=== PATIENT | female | born 1975 | race Caucasian/White ===

== ENCOUNTER 2017-03-29 05:55 | Emergency (ER) | payer MEDICARE, MEDICAID ==
[~2017-03-29] VITALS: Ht 170.2 cm; Wt 127.0 kg
[2017-03-29 07:38] LABS: BASOPHILS % 0.6 % (0.0-2.0); EOSINOPHILS % 4.2 % (0.0-5.0); HEMATOCRIT. 42.9 % (36.0-48.0); HEMOGLOBIN. 14.2 g/dL (12.0-16.0); LYMPHOCYTES % 14.4 % (20.0-50.0); MEAN CORPUSCULAR HEMOGLOBIN 31.1 pg (28.0-32.0); MEAN CORPUSCULAR VOLUME 94.3 fL (81.0-99.0); MEAN PLATELET VOLUME 9.4 fl (7.4-10.4); MONOCYTES % 4.8 % (2.0-8.0); PLATELET 168 x1000/uL (130-400); RED BLOOD CELL COUNT 4.55 mill/uL (4.2-5.4); RED CELL DISTRIBUTION WIDTH 18.1 % (11.6-14.6)
[2017-03-29 07:46] LABS: CARBON DIOXIDE 28 mEq/L (21-32); CHLORIDE 94 mEq/L (98-107)
[2017-03-29 08:22] VITALS: BP 133/75
== END 2017-03-29 08:23 | disposition home or self-care (01) ==
LOC: ER 07:37
DX: T82.318A Breakdown (mechanical) of other vascular grafts, initial encounter (principal); N18.6 End stage renal disease; I12.0 Hypertensive chronic kidney disease with stage 5 chronic kidney disease or end stage renal disease; F17.200 Nicotine dependence, unspecified, uncomplicated; Z99.2 Dependence on renal dialysis; Z91.041 Radiographic dye allergy status; Y92.89 Other specified places as the place of occurrence of the external cause
CPT/HCPCS: 36415; 80053; 85025; 85610; 99284

== ENCOUNTER 2017-06-03 15:36 | Inpatient (IN) | payer BC, MEDICAID, MEDICARE, OTHER ==
[~2017-06-03] VITALS: Ht 153.7 cm; Wt 124.3 kg
[2017-06-03] MEDS ORDERED: KETOROLAC 60MG/2ML VIAL IM ONE (18:15)
[2017-06-03 18:53] LABS: HEMATOCRIT. 37.2 % (36.0-48.0); HEMOGLOBIN. 12.3 g/dL (12.0-16.0); MEAN CORPUSCULAR HEMOGLOBIN 30.6 pg (28.0-32.0); MEAN CORPUSCULAR VOLUME 92.7 fL (81.0-99.0); MEAN PLATELET VOLUME 9.2 fl (7.4-10.4); PLATELET 134 x1000/uL (130-400); RED BLOOD CELL COUNT 4.01 mill/uL (4.2-5.4); RED CELL DISTRIBUTION WIDTH 16.6 % (11.6-14.6)
[2017-06-03 18:56] LABS: CHLORIDE 87 mEq/L (98-107)
[2017-06-03 18:58] LABS: INR 1.2; PROTHROMBIN TIME 12.1 sec (9.4-11.6)
[2017-06-03 18:59] LABS: CARBON DIOXIDE 23 mEq/L (21-32)
[2017-06-03 19:06] LABS: TROPONIN I < 0.02 ng/mL (0.00-0.04)
[2017-06-03 19:22] LABS: PLATELET ESTIMATE NORMAL
[2017-06-03] MEDS ORDERED: PIPERACILLIN/TAZ 2.25G PREMIX 50 ML IV ONE (20:30)
[2017-06-03] MEDS ORDERED: MORPHINE SULFATE 4 MG/ML CPJ (NOT FOR IM USE) IV ONE (20:30)
[2017-06-03] MEDS ORDERED: VANCOMYCIN 750 MG PREMIX 150 ML IV ONE (20:30)
[2017-06-03] MEDS ORDERED: MORPHINE SULFATE 2 MG/ML CPJ (NOT FOR IM USE) IV PRN (20:45)
[2017-06-03] MEDS ORDERED: ONDANSETRON HCL 4MG/2ML VIAL IV PRN (20:45)
[2017-06-03] MEDS ORDERED: IPRATROPIUM/ALBUTEROL 0.5-3(2.5)MG/3ML NEB INH PRN (20:45)
[2017-06-03] MEDS ORDERED: MORPHINE SULFATE 2 MG/ML CPJ (NOT FOR IM USE) IV NR (20:45)
[2017-06-03] MEDS ORDERED: ZOLPIDEM TARTRATE 5MG TABLET PO PRN (21:00)
[2017-06-03] MEDS: ACETAMINOPHEN 325MG TABLET PO PRN (22:18)
[2017-06-03 23:09] VITALS: BP 121/65
[2017-06-04] MEDS: ACETAMINOPHEN 325MG TABLET PO PRN (00:42)
[2017-06-04] MEDS ORDERED: ROPI0.5T MT (01:42)
[2017-06-04] MEDS ORDERED: NEPVIT PO (01:42)
[2017-06-04] MEDS ORDERED: BENZ200C52 PO (01:42)
[2017-06-04] MEDS ORDERED: ALPR0.5T PO (01:42)
[2017-06-04] MEDS ORDERED: OMEP40CA34 PO (01:42)
[2017-06-04] MEDS ORDERED: ASCO500C6 PO (01:42)
[2017-06-04] MEDS ORDERED: ZOLP5TAB8 PO (01:42)
[2017-06-04] MEDS ORDERED: CINA30 PO (01:42)
[2017-06-04] MEDS ORDERED: TRAZ-132 PO (01:42)
[2017-06-04] MEDS ORDERED: METO50TA5 PO (01:42)
[2017-06-04] MEDS ORDERED: MEDR10TA11 PO (01:42)
[2017-06-04] MEDS ORDERED: VANCOMYCIN 1 G PREMIX 200 ML IV NR ×2 (02:00→20:00)
[2017-06-04] MEDS: IPRATROPIUM/ALBUTEROL 0.5-3(2.5)MG/3ML NEB INH SCH ×3 (02:33→20:49)
[2017-06-04 04:00] VITALS: BP 124/70
[2017-06-04 06:28] LABS: HEMATOCRIT. 37.3 % (36.0-48.0); MEAN CORPUSCULAR HEMOGLOBIN 30.1 pg (28.0-32.0); MEAN CORPUSCULAR VOLUME 93.5 fL (81.0-99.0); MEAN PLATELET VOLUME 9.9 fl (7.4-10.4); PLATELET 110 x1000/uL (130-400); RED BLOOD CELL COUNT 3.99 mill/uL (4.2-5.4); RED CELL DISTRIBUTION WIDTH 17.1 % (11.6-14.6)
[2017-06-04] MEDS: MORPHINE SULFATE 2 MG/ML CPJ (NOT FOR IM USE) IV PRN ×2 (07:04→13:34)
[2017-06-04] MEDS ORDERED: OMEPRAZOLE 20MG CAPSULE EXTENDED RELEASE PO SCH (07:10)
[2017-06-04 07:22] LABS: PHOSPHORUS 6.5 mg/dL (2.5-4.9)
[2017-06-04 08:00] VITALS: BP 118/72
[2017-06-04] MEDS ORDERED: SODIUM POLYSTYRENE SULFONATE 15 G/60 ML BOT PO NR (08:15)
[2017-06-04] MEDS: METOPROLOL TARTRATE 50MG TABLET PO SCH ×2 (09:00→20:41)
[2017-06-04] MEDS: FOLIC ACID/VITAMIN B COMP W-C TABLET PO SCH (09:00)
[2017-06-04] MEDS ORDERED: ASCORBIC ACID 500 MG PO SCH (09:00)
[2017-06-04] MEDS: OMEPRAZOLE 20MG CAPSULE EXTENDED RELEASE PO SCH ×3 (09:00→17:43)
[2017-06-04] MEDS ORDERED: CINACALCET HCL 30MG TABLET PO SCH (09:00)
[2017-06-04] MEDS ORDERED: PIPERACILLIN/TAZ 2.25G PREMIX 50 ML IV SCH ×2 (09:00→21:00)
[2017-06-04] MEDS ORDERED: MEDICATION NOT ON FORMULARY EA (Omeprazole 40 MG) PO SCH (09:00)
[2017-06-04] MEDS: ENOXAPARIN 30MG/0.3ML SYR SUBCUT SCH (09:00)
[2017-06-04] MEDS: ALPRAZOLAM 0.5 MG TABLET PO PRN (09:04)
[2017-06-04] MEDS: ASCORBIC ACID 500 MG TABLET PO SCH ×2 (09:04→17:43)
[2017-06-04] MEDS: BENZONATATE 200MG CAPSULE PO SCH ×3 (09:17→17:44)
[2017-06-04] MEDS: TRAZODONE HCL 100MG TABLET PO SCH (09:30)
[2017-06-04] MEDS ORDERED: LIDOCAINE HCL 1% 20ML VIAL (Pyxis) INJ ONE (11:27)
[2017-06-04] MEDS ORDERED: SODIUM BICARBONATE 4% (2.4MEQ) 5ML VIAL IV ONE (11:27)
[2017-06-04 12:00] VITALS: BP 116/67
[2017-06-04 16:00] VITALS: BP 122/70
[2017-06-04] MEDS ORDERED: ZOLPIDEM TARTRATE 5MG TABLET PO SCH (17:00)
[2017-06-04] MEDS: HYDROCODONE/ACETAMINOPHEN 5/325MG TABLET PO PRN (17:45)
[2017-06-04 18:28] LABS: PLATELET ESTIMATE DECREASED
[2017-06-04 20:00] VITALS: BP 103/52
[2017-06-04] MEDS ORDERED: ROPINIROLE HCL MT SCH (21:00)
[2017-06-04] MEDS ORDERED: MEDROXYPROGESTERONE ACETATE PO SCH (21:00)
[2017-06-04] MEDS ORDERED: MEDROXYPROGESTERONE ACET 5MG TABLET PO SCH (21:00)
[2017-06-05] VITALS: BP 112/61
[2017-06-05] MEDS: IPRATROPIUM/ALBUTEROL 0.5-3(2.5)MG/3ML NEB INH SCH ×4 (01:24→20:44)
[2017-06-05 04:00] VITALS: BP 111/67
[2017-06-05] MEDS: OMEPRAZOLE 20MG CAPSULE EXTENDED RELEASE PO SCH ×3 (06:36→17:52)
[2017-06-05 06:45] LABS: HEMATOCRIT. 35.6 % (36.0-48.0); HEMOGLOBIN. 11.9 g/dL (12.0-16.0); MEAN CORPUSCULAR HEMOGLOBIN 31.2 pg (28.0-32.0); MEAN CORPUSCULAR VOLUME 93.2 fL (81.0-99.0); MEAN PLATELET VOLUME 10.2 fl (7.4-10.4); PLATELET 88 x1000/uL (130-400); RED BLOOD CELL COUNT 3.82 mill/uL (4.2-5.4)
[2017-06-05 07:56] VITALS: BP 110/68
[2017-06-05] MEDS: MORPHINE SULFATE 2 MG/ML CPJ (NOT FOR IM USE) IV PRN ×2 (08:50→14:17)
[2017-06-05] MEDS: TRAZODONE HCL 100MG TABLET PO SCH (08:51)
[2017-06-05] MEDS: ENOXAPARIN 30MG/0.3ML SYR SUBCUT SCH (08:51)
[2017-06-05] MEDS: CINACALCET HCL 60MG TABLET PO SCH (08:52)
[2017-06-05] MEDS: METOPROLOL TARTRATE 50MG TABLET PO SCH ×2 (08:53→20:18)
[2017-06-05] MEDS: BENZONATATE 200MG CAPSULE PO SCH ×3 (08:53→17:53)
[2017-06-05] MEDS: ASCORBIC ACID 500 MG TABLET PO SCH ×2 (08:53→17:52)
[2017-06-05] MEDS: FOLIC ACID/VITAMIN B COMP W-C TABLET PO SCH (08:53)
[2017-06-05 11:38] VITALS: BP 120/69
[2017-06-05 15:32] VITALS: BP 120/71
[2017-06-05 16:05] LABS: PLATELET ESTIMATE DECREASED
[2017-06-05 20:00] VITALS: BP 144/83
[2017-06-05] MEDS: ROPINIROLE HCL 0.25MG TABLET PO SCH (20:19)
[2017-06-05] MEDS: MORPHINE SULFATE 10 MG/ML CPJ IV PRN (20:59)
[2017-06-06] VITALS: BP 138/79
[2017-06-06] MEDS: IPRATROPIUM/ALBUTEROL 0.5-3(2.5)MG/3ML NEB INH SCH ×4 (01:12→19:41)
[2017-06-06] MEDS: CINACALCET HCL 60MG TABLET PO SCH (09:25)
[2017-06-06] MEDS: FOLIC ACID/VITAMIN B COMP W-C TABLET PO SCH (09:25)
[2017-06-06] MEDS: ASCORBIC ACID 500 MG TABLET PO SCH ×2 (09:25→17:06)
[2017-06-06] MEDS: BENZONATATE 200MG CAPSULE PO SCH ×3 (09:25→17:06)
[2017-06-06] MEDS: OMEPRAZOLE 20MG CAPSULE EXTENDED RELEASE PO SCH ×2 (09:25→13:00)
[2017-06-06] MEDS: ENOXAPARIN 30MG/0.3ML SYR SUBCUT SCH (09:26)
[2017-06-06] MEDS: MORPHINE SULFATE 10 MG/ML CPJ IV PRN ×3 (09:35→21:42)
[2017-06-06] MEDS ORDERED: HEPARIN SODIUM 1,000 UNIT/1ML VIAL IV NR (09:45)
[2017-06-06 10:02] LABS: HEMATOCRIT. 35.8 % (36.0-48.0); HEMOGLOBIN. 11.6 g/dL (12.0-16.0); MEAN CORPUSCULAR HEMOGLOBIN 30.1 pg (28.0-32.0); MEAN CORPUSCULAR VOLUME 93.2 fL (81.0-99.0); MEAN PLATELET VOLUME 10.9 fl (7.4-10.4); PLATELET 85 x1000/uL (130-400); RED BLOOD CELL COUNT 3.84 mill/uL (4.2-5.4); RED CELL DISTRIBUTION WIDTH 17.2 % (11.6-14.6)
[2017-06-06] MEDS ORDERED: PROMETHAZINE LIQUID 6.25MG/5ML 118ML PO PRN (10:15)
[2017-06-06 10:42] LABS: PHOSPHORUS 6.1 mg/dL (2.5-4.9)
[2017-06-06 12:00] VITALS: BP 148/87
[2017-06-06] MEDS: METOPROLOL TARTRATE 50MG TABLET PO SCH ×2 (12:59→21:30)
[2017-06-06] MEDS: TRAZODONE HCL 100MG TABLET PO SCH (13:00)
[2017-06-06] MEDS ORDERED: VANCOMYCIN 750 MG PREMIX 150 ML IV NR (14:00)
[2017-06-06] MEDS ORDERED: METHYLPREDNISOLONE SOD SUCC 125 MG/2 ML VIAL IV NR (14:45)
[2017-06-06 16:00] VITALS: BP 169/84
[2017-06-06] MEDS: CEFAZOLIN 2,000 MG in DEXT 5% WATER 100 ML IV SCH (18:19)
[2017-06-06] MEDS: BUDESONIDE 0.5MG/2ML NEB HHN SCH (19:41)
[2017-06-06 20:00] VITALS: BP 160/89
[2017-06-06] MEDS: ROPINIROLE HCL 0.25MG TABLET PO SCH (21:30)
[2017-06-07] VITALS (8 sets, daily range): BP systolic 89–168; BP diastolic 61–95
[2017-06-07] MEDS: ALPRAZOLAM 0.5 MG TABLET PO PRN ×2 (01:19→22:28)
[2017-06-07] MEDS: IPRATROPIUM/ALBUTEROL 0.5-3(2.5)MG/3ML NEB INH SCH ×4 (02:20→21:14)
[2017-06-07 05:48] LABS: PLATELET ESTIMATE DECREASED
[2017-06-07] MEDS: DOCUSATE SODIUM 100MG CAPSULE PO PRN ×2 (06:21→17:41)
[2017-06-07] MEDS: OMEPRAZOLE 20MG CAPSULE EXTENDED RELEASE PO SCH (06:21)
[2017-06-07 06:29] LABS: HEMATOCRIT. 38.1 % (36.0-48.0); HEMOGLOBIN. 12.2 g/dL (12.0-16.0); MEAN CORPUSCULAR HEMOGLOBIN 29.8 pg (28.0-32.0); MEAN CORPUSCULAR VOLUME 93.1 fL (81.0-99.0); MEAN PLATELET VOLUME 10.7 fl (7.4-10.4); PLATELET 96 x1000/uL (130-400); RED BLOOD CELL COUNT 4.09 mill/uL (4.2-5.4); RED CELL DISTRIBUTION WIDTH 17.3 % (11.6-14.6)
[2017-06-07] MEDS: CINACALCET HCL 60MG TABLET PO SCH (08:36)
[2017-06-07] MEDS: FOLIC ACID/VITAMIN B COMP W-C TABLET PO SCH (08:37)
[2017-06-07] MEDS: BENZONATATE 200MG CAPSULE PO SCH ×3 (08:37→17:41)
[2017-06-07] MEDS: TRAZODONE HCL 100MG TABLET PO SCH (08:38)
[2017-06-07] MEDS: ASCORBIC ACID 500 MG TABLET PO SCH ×2 (08:38→17:41)
[2017-06-07] MEDS: METOPROLOL TARTRATE 50MG TABLET PO SCH ×2 (08:38→21:40)
[2017-06-07] MEDS: PROMETHAZINE LIQUID 6.25MG/5ML 118ML PO PRN ×2 (08:39→17:41)
[2017-06-07] MEDS: BUDESONIDE 0.5MG/2ML NEB HHN SCH ×2 (10:15→21:14)
[2017-06-07 11:24] LABS: PLATELET ESTIMATE DECREASED
[2017-06-07] MEDS: CEFAZOLIN 2,000 MG in DEXT 5% WATER 100 ML IV SCH (17:41)
[2017-06-07] MEDS: ROPINIROLE HCL 0.25MG TABLET PO SCH (21:40)
[2017-06-07] MEDS: HYDROCODONE/ACETAMINOPHEN 5/325MG TABLET PO PRN (21:40)
[2017-06-07] MEDS: ZOLPIDEM TARTRATE 5MG TABLET PO PRN (22:28)
[2017-06-08] MEDS: IPRATROPIUM/ALBUTEROL 0.5-3(2.5)MG/3ML NEB INH SCH ×4 (01:08→20:55)
[2017-06-08 04:00] VITALS: BP 146/81
[2017-06-08] MEDS: ACETAMINOPHEN 325MG TABLET PO PRN ×2 (04:10→18:11)
[2017-06-08] MEDS: OMEPRAZOLE 20MG CAPSULE EXTENDED RELEASE PO SCH (06:26)
[2017-06-08] MEDS: DOCUSATE SODIUM 100MG CAPSULE PO PRN (08:19)
[2017-06-08] MEDS: BENZONATATE 200MG CAPSULE PO SCH ×3 (08:20→17:19)
[2017-06-08] MEDS: ASCORBIC ACID 500 MG TABLET PO SCH ×2 (08:22→17:21)
[2017-06-08] MEDS: FOLIC ACID/VITAMIN B COMP W-C TABLET PO SCH (08:22)
[2017-06-08] MEDS: TRAZODONE HCL 100MG TABLET PO SCH (08:23)
[2017-06-08] MEDS: CINACALCET HCL 60MG TABLET PO SCH (08:23)
[2017-06-08] MEDS: METOPROLOL TARTRATE 50MG TABLET PO SCH ×2 (08:24→20:13)
[2017-06-08 08:50] LABS: HEMATOCRIT. 37.1 % (36.0-48.0); MEAN PLATELET VOLUME 10.4 fl (7.4-10.4); PLATELET 129 x1000/uL (130-400); RED BLOOD CELL COUNT 3.99 mill/uL (4.2-5.4); RED CELL DISTRIBUTION WIDTH 17.3 % (11.6-14.6)
[2017-06-08] MEDS: BUDESONIDE 0.5MG/2ML NEB HHN SCH ×2 (09:10→20:56)
[2017-06-08] MEDS ORDERED: NA PHOS,M-B/NA PHOS,DI-BA ENEMA 118ML PR PRN (11:30)
[2017-06-08] MEDS ORDERED: MAGNESIUM CITRATE 300ML SOLUTION PO ONE (11:30)
[2017-06-08] MEDS ORDERED: MAGNESIUM CITRATE 300ML SOLUTION PO PRN (11:45)
[2017-06-08 12:00] VITALS: BP 142/74
[2017-06-08 16:00] VITALS: BP 164/98
[2017-06-08] MEDS: CEFAZOLIN 2,000 MG in DEXT 5% WATER 100 ML IV SCH (17:19)
[2017-06-08] MEDS ORDERED: LOSARTAN POTASSIUM 25 MG TABLET PO SCH (18:35)
[2017-06-08] MEDS ORDERED: CLONIDINE 0.1MG TABLET PO PRN (18:45)
[2017-06-08 19:46] VITALS: BP 140/74
[2017-06-08] MEDS: ROPINIROLE HCL 0.25MG TABLET PO SCH (20:14)
[2017-06-08 20:32] LABS: PLATELET ESTIMATE SLIGHTLY DECREASED
[2017-06-08] MEDS: ZOLPIDEM TARTRATE 5MG TABLET PO PRN (20:53)
[2017-06-08] MEDS: ALPRAZOLAM 0.5 MG TABLET PO PRN (20:53)
[2017-06-09 00:18] VITALS: BP 127/72
[2017-06-09] MEDS: IPRATROPIUM/ALBUTEROL 0.5-3(2.5)MG/3ML NEB INH SCH ×4 (02:00→20:09)
[2017-06-09 03:54] VITALS: BP 139/78
[2017-06-09 08:09] LABS: HEMATOCRIT. 36.9 % (36.0-48.0); HEMOGLOBIN. 12.1 g/dL (12.0-16.0); MEAN CORPUSCULAR HEMOGLOBIN 30.5 pg (28.0-32.0); MEAN CORPUSCULAR VOLUME 92.7 fL (81.0-99.0); MEAN PLATELET VOLUME 10.1 fl (7.4-10.4); PLATELET 128 x1000/uL (130-400); RED BLOOD CELL COUNT 3.97 mill/uL (4.2-5.4)
[2017-06-09] MEDS: ASCORBIC ACID 500 MG TABLET PO SCH ×2 (08:36→17:41)
[2017-06-09] MEDS: METOPROLOL TARTRATE 50MG TABLET PO SCH ×2 (08:36→20:50)
[2017-06-09] MEDS: BENZONATATE 200MG CAPSULE PO SCH ×3 (08:37→17:41)
[2017-06-09] MEDS: LOSARTAN POTASSIUM 25 MG TABLET PO SCH (08:37)
[2017-06-09] MEDS: TRAZODONE HCL 100MG TABLET PO SCH (08:37)
[2017-06-09] MEDS: FOLIC ACID/VITAMIN B COMP W-C TABLET PO SCH (08:37)
[2017-06-09] MEDS: CINACALCET HCL 60MG TABLET PO SCH (08:38)
[2017-06-09] MEDS: FAMOTIDINE 20MG TABLET PO SCH (08:38)
[2017-06-09 10:42] LABS: PLATELET ESTIMATE SLIGHTLY DECREASED
[2017-06-09] MEDS: BUDESONIDE 0.5MG/2ML NEB HHN SCH ×2 (11:50→20:09)
[2017-06-09] MEDS: CEFAZOLIN 2,000 MG in DEXT 5% WATER 100 ML IV SCH (17:40)
[2017-06-09 20:00] VITALS: BP 142/74
[2017-06-09] MEDS: ROPINIROLE HCL 0.25MG TABLET PO SCH (20:49)
[2017-06-09] MEDS: ZOLPIDEM TARTRATE 5MG TABLET PO PRN (20:59)
[2017-06-10] VITALS: BP 141/87
[2017-06-10] MEDS: IPRATROPIUM/ALBUTEROL 0.5-3(2.5)MG/3ML NEB INH SCH ×4 (02:33→20:54)
[2017-06-10 04:00] VITALS: BP 135/87
[2017-06-10] MEDS: ALPRAZOLAM 0.5 MG TABLET PO PRN ×2 (04:13→21:26)
[2017-06-10 07:00] LABS: HEMATOCRIT. 36.4 % (36.0-48.0); HEMOGLOBIN. 11.8 g/dL (12.0-16.0); MEAN CORPUSCULAR VOLUME 92.7 fL (81.0-99.0); MEAN PLATELET VOLUME 10.2 fl (7.4-10.4); PLATELET 144 x1000/uL (130-400); RED BLOOD CELL COUNT 3.93 mill/uL (4.2-5.4); RED CELL DISTRIBUTION WIDTH 17.1 % (11.6-14.6)
[2017-06-10 07:44] LABS: PHOSPHORUS 7.5 mg/dL (2.5-4.9)
[2017-06-10 08:26] VITALS: BP 150/90
[2017-06-10] MEDS: LOSARTAN POTASSIUM 25 MG TABLET PO SCH (08:41)
[2017-06-10] MEDS: METOPROLOL TARTRATE 50MG TABLET PO SCH ×2 (08:41→21:26)
[2017-06-10] MEDS: ASCORBIC ACID 500 MG TABLET PO SCH ×2 (08:43→14:39)
[2017-06-10] MEDS: FAMOTIDINE 20MG TABLET PO SCH (08:43)
[2017-06-10] MEDS: BENZONATATE 200MG CAPSULE PO SCH ×3 (08:43→15:52)
[2017-06-10] MEDS: CINACALCET HCL 60MG TABLET PO SCH (08:43)
[2017-06-10] MEDS: FOLIC ACID/VITAMIN B COMP W-C TABLET PO SCH (08:43)
[2017-06-10] MEDS: TRAZODONE HCL 100MG TABLET PO SCH (08:44)
[2017-06-10 12:00] VITALS: BP 145/88
[2017-06-10 14:44] VITALS: BP 149/81
[2017-06-10] MEDS: CEFAZOLIN 2,000 MG in DEXT 5% WATER 100 ML IV SCH (15:52)
[2017-06-10] MEDS: DOCUSATE SODIUM 100MG CAPSULE PO PRN (15:52)
[2017-06-10 17:38] LABS: PLATELET ESTIMATE SLIGHTLY DECREASED
[2017-06-10 20:00] VITALS: BP 148/91
[2017-06-10] MEDS: ROPINIROLE HCL 0.25MG TABLET PO SCH (21:26)
[2017-06-10] MEDS: ZOLPIDEM TARTRATE 5MG TABLET PO PRN (23:33)
[2017-06-11] VITALS: BP 146/78
[2017-06-11] MEDS: IPRATROPIUM/ALBUTEROL 0.5-3(2.5)MG/3ML NEB INH SCH ×3 (01:38→14:00)
[2017-06-11 04:00] VITALS: BP 116/88
[2017-06-11 07:21] LABS: HEMATOCRIT. 34.9 % (36.0-48.0); HEMOGLOBIN. 11.3 g/dL (12.0-16.0); MEAN CORPUSCULAR HEMOGLOBIN 29.9 pg (28.0-32.0); MEAN CORPUSCULAR VOLUME 92.4 fL (81.0-99.0); MEAN PLATELET VOLUME 10.2 fl (7.4-10.4); PLATELET 137 x1000/uL (130-400); RED BLOOD CELL COUNT 3.78 mill/uL (4.2-5.4); RED CELL DISTRIBUTION WIDTH 16.9 % (11.6-14.6)
[2017-06-11 08:00] VITALS: BP 137/89
[2017-06-11] MEDS: BENZONATATE 200MG CAPSULE PO SCH ×3 (08:51→16:18)
[2017-06-11] MEDS: METOPROLOL TARTRATE 50MG TABLET PO SCH (08:51)
[2017-06-11] MEDS: ASCORBIC ACID 500 MG TABLET PO SCH ×2 (08:52→16:18)
[2017-06-11] MEDS: FAMOTIDINE 20MG TABLET PO SCH (09:00)
[2017-06-11] MEDS: CINACALCET HCL 60MG TABLET PO SCH (09:00)
[2017-06-11] MEDS: TRAZODONE HCL 100MG TABLET PO SCH (09:30)
[2017-06-11] MEDS ORDERED: MIDAZOLAM HCL 5 MG/5 ML VIAL ONE (10:06)
[2017-06-11] MEDS ORDERED: LIDOCAINE HCL 2% JELLY 5ML ONE (10:06)
[2017-06-11] MEDS ORDERED: FENTANYL CITRATE/PF 50MCG/ML 2ML VIAL ONE (10:06)
[2017-06-11] MEDS ORDERED: TETRACAINE/BENZOCAINE/BUTAMBEN 20 GM SPRAY MM ONE (10:07)
[2017-06-11] MEDS: FOLIC ACID/VITAMIN B COMP W-C TABLET PO SCH (11:27)
[2017-06-11 12:00] VITALS: BP 137/75
[2017-06-11] MEDS: LOSARTAN POTASSIUM 25 MG TABLET PO SCH (13:33)
[2017-06-11] MEDS: CEFAZOLIN 2,000 MG in DEXT 5% WATER 100 ML IV SCH (16:18)
[2017-06-11 16:34] LABS: PLATELET ESTIMATE NORMAL
[2017-06-11 17:38] VITALS: BP 137/75
== END 2017-06-11 18:00 | disposition home health service (06) | DRG 314 ==
LOC: ER 15:57 → 8WST 19:47 → EDBEDREQ 20:00 → SUPCPDRO 20:08 → ENRESERV 21:11
PROVIDERS: ADMIT Family Medicine Adult Medicine; ATTEND Family Medicine Adult Medicine
PROC: 02HV33Z Insertion of Infusion Device into Superior Vena Cava, Percutaneous Approach (ICD-10-PCS; principal; 2017-06-04)
PROC: B548ZZA Ultrasonography of Superior Vena Cava, Guidance (ICD-10-PCS; 2017-06-04)
PROC: 0JPVXXZ Removal of Tunneled Vascular Access Device from Upper Extremity Subcutaneous Tissue and Fascia, External Approach (ICD-10-PCS; 2017-06-04)
PROC: 5A1D70Z Performance of Urinary Filtration, Intermittent, Less than 6 Hours Per Day (ICD-10-PCS; 2017-06-11)
PROC: B246ZZ4 Ultrasonography of Right and Left Heart, Transesophageal (ICD-10-PCS; 2017-06-11)
DX: T80.211A Bloodstream infection due to central venous catheter, initial encounter (principal); N18.6 End stage renal disease; J96.00 Acute respiratory failure, unspecified whether with hypoxia or hypercapnia; A41.01 Sepsis due to Methicillin susceptible Staphylococcus aureus; I33.0 Acute and subacute infective endocarditis; I13.2 Hypertensive heart and chronic kidney disease with heart failure and with stage 5 chronic kidney disease, or end stage renal disease; D69.6 Thrombocytopenia, unspecified; E44.1 Mild protein-calorie malnutrition; T82.520A Displacement of surgically created arteriovenous fistula, initial encounter; J45.901 Unspecified asthma with (acute) exacerbation; E87.1 Hypo-osmolality and hyponatremia; N25.81 Secondary hyperparathyroidism of renal origin; Z68.43 Body mass index [BMI] 50.0-59.9, adult; E66.01 Morbid (severe) obesity due to excess calories; E87.5 Hyperkalemia; R73.03 Prediabetes; E87.70 Fluid overload, unspecified; Y83.8 Other surgical procedures as the cause of abnormal reaction of the patient, or of later complication, without mention of misadventure at the time of the procedure; E87.6 Hypokalemia; F17.210 Nicotine dependence, cigarettes, uncomplicated; J20.9 Acute bronchitis, unspecified; R26.81 Unsteadiness on feet; Z79.899 Other long term (current) drug therapy; Z71.6 Tobacco abuse counseling; Z99.2 Dependence on renal dialysis; Z91.041 Radiographic dye allergy status; Y92.89 Other specified places as the place of occurrence of the external cause
CPT/HCPCS: 36415; 36556; 36589; 71010; 76937; 77001; 80048; 80053; 80076; 80202; 83036; 83605; 83735; 83880; 84100; 84484; 85025; 85610; 85651; 85730; 87040; 87070; 87077; 87086; 93005; 93306; 93312; 93970; 94640; 94664; 96374; 96375; 97110; 97116; 97162; 99285; C1752; C1887; J0690; J1642; J1644; J1650; J1885; J2250; J2270; J2405; J2543; J2930; J3010; J3370; J3490; J7030; J7050; J7060; J7620; J7626; Q0169

== ENCOUNTER 2017-07-09 13:44 | Emergency (ER) | payer MEDICARE ==
[~2017-07-09] VITALS: Ht 167.6 cm; Wt 123.0 kg
[~2017-07-09 13:44] MED LIST: ALPR0.5T PO; ASCO500C6 PO; BENZ200C52 PO; CINA30 PO; MEDR10TA11 PO; METO50TA5 PO; NEPVIT PO; OMEP40CA34 PO; ROPI0.5T MT; TRAZ-132 PO; ZOLP5TAB8 PO
[2017-07-09] MEDS ORDERED: LIDOCAINE HCL 1% 20ML VIAL (Pyxis) INJ INFIL ONE (16:30)
[2017-07-09 16:55] VITALS: BP 162/82
== END 2017-07-09 17:56 | disposition home or self-care (01) ==
LOC: ER 13:44
DX: T82.898A Other specified complication of vascular prosthetic devices, implants and grafts, initial encounter (principal); I12.0 Hypertensive chronic kidney disease with stage 5 chronic kidney disease or end stage renal disease; N18.6 End stage renal disease; Y84.1 Kidney dialysis as the cause of abnormal reaction of the patient, or of later complication, without mention of misadventure at the time of the procedure; Z99.2 Dependence on renal dialysis; Z87.448 Personal history of other diseases of urinary system; Z91.041 Radiographic dye allergy status
CPT/HCPCS: 99284; J3490

== ENCOUNTER 2024-01-10 20:12 | Inpatient (IN) | payer MEDICARE ==
[~2024-01-10] VITALS: Ht 165.1 cm; Wt 94.9 kg
[~2024-01-10 20:12] MED LIST changes: +METO-539 PO; -METO50TA5 PO; +OMEP40CA20 PO; -OMEP40CA34 PO; -ROPI0.5T MT; -TRAZ-132 PO; +TRAZ-252 PO; +[UNRECOGNIZED DRUG - CODE] MT
[2024-01-10] MEDS: SODIUM CHLORIDE 0.9% 1000ML BAG (SEPSIS BOLUS) IV ONE (22:00)
[2024-01-10 22:06] LABS: BASOPHILS % 0.8 % (0.0-2.0); EOSINOPHILS % 0.7 % (0.0-5.0); HEMATOCRIT. 43.6 % (36.0-48.0); HEMOGLOBIN. 14.9 g/dL (12.0-16.0); LYMPHOCYTES % 8.2 % (20.0-50.0); MEAN CORPUSCULAR HEMOGLOBIN 33.4 pg (28.0-32.0); MEAN CORPUSCULAR HGB CONC 34.2 g/dL (31.0-37.0); MEAN CORPUSCULAR VOLUME 97.6 fL (81.0-99.0); MEAN PLATELET VOLUME 10.2 fl (7.4-10.4); MONOCYTES % 4.5 % (2.0-8.0); NEUTROPHILS % 85.8 % (40.0-76.0); PLATELET 211 x1000/uL (130-400); RED BLOOD CELL COUNT 4.47 mill/uL (4.2-5.4); RED CELL DISTRIBUTION WIDTH 15.4 % (11.6-14.6); WHITE BLOOD COUNT 9.9 x1000/uL (4.5-11.0)
[2024-01-10 22:11] LABS: CHLORIDE 91 mEq/L (98-107); POTASSIUM 3.4 mEq/L (3.5-5.1); SODIUM 132 mEq/L (136-145)
[2024-01-10 22:12] LABS: CALCIUM 10.6 mg/dL (8.7-10.4); CARBON DIOXIDE 24 mEq/L (21-32)
[2024-01-10 22:15] LABS: PROTHROMBIN TIME 11.1 sec (9.6-11.0)
[2024-01-10 22:17] LABS: GLUCOSE 142 mg/dL (70-105); UREA NITROGEN BLOOD 23 mg/dL (9-23)
[2024-01-10 22:18] LABS: LACTIC ACID 2.6 mmol/L (0.4-2.0); TROPONIN I HIGH SENSITIVITY 24 ng/L (3.0-34)
[2024-01-10 22:19] LABS: ALANINE AMINOTRANSFERASE 13 IU/L (10-49); ALBUMIN 4.6 g/dL (3.2-4.8); ASPARTATE AMINOTRANSFERASE 22 IU/L (<34); BILIRUBIN TOTAL 0.7 mg/dL (0.1-1.0); PROTEIN TOTAL 7.8 g/dL (6.0-8.3)
[2024-01-10] MEDS: PIPERACILLIN/TAZO 3.375G/50ML 50 ML IV ONE (22:30)
[2024-01-10 22:31] LABS: CREATININE 7.5 mg/dL (0.6-1.0)
[2024-01-11] MEDS: VANCOMYCIN 1G PREMIX 200 ML IV ONE (01:57)
[2024-01-11] MEDS ORDERED: NOREPINEPHRINE 8MG/250ML PMX 250 ML IV NR (02:00)
[2024-01-11] MEDS: VANCOMYCIN 1G PREMIX 200 ML IV NR ×2 (02:00→10:10)
[2024-01-11] MEDS: PIPERACILLIN/TAZO 3.375G/50ML 50 ML IV NR (03:00)
[2024-01-11] MEDS ORDERED: CLONIDINE HCL 0.1MG/24HR PATCH TD NR (03:30)
[2024-01-11] MEDS ORDERED: GUAIFENESIN 200MG/10ML SUGAR FREE UDC PO PRN (08:45)
[2024-01-11] MEDS ORDERED: CLONIDINE 0.1MG TABLET PO PRN (08:45)
[2024-01-11] MEDS ORDERED: ONDANSETRON HCL 4MG/2ML INJ IV PRN (08:45)
[2024-01-11] MEDS ORDERED: IPRATROPIUM/ALBUTEROL 0.5-3(2.5)MG/3ML NEB HHN PRN (08:45)
[2024-01-11] MEDS: NOREPINEPHRINE 8MG/250ML PMX 250 ML IV ONE (09:15)
[2024-01-11] MEDS ORDERED: PIPERACILLIN/TAZO 3.375G/50ML 50 ML IV SCH (10:00)
[2024-01-11] MEDS: PIPERACILLIN/TAZO 3.375G/50ML 50 ML IV SCH (14:30)
[2024-01-11] MEDS: DOCUSATE SODIUM 100MG CAPSULE PO PRN (14:31)
[2024-01-11] MEDS ORDERED: SENNOSIDES/DOCUSATE SOD 8.6/50MG TABLET PO PRN (15:15)
[2024-01-11 16:40] LABS: CHLORIDE 96 mEq/L (98-107); POTASSIUM 4.3 mEq/L (3.5-5.1); SODIUM 132 mEq/L (136-145)
[2024-01-11 16:41] LABS: CALCIUM 9.8 mg/dL (8.7-10.4); CARBON DIOXIDE 28 mEq/L (21-32)
[2024-01-11 16:46] LABS: GLUCOSE 151 mg/dL (70-105); IRON 39 ug/dL (50-170)
[2024-01-11 16:47] LABS: CREATINE KINASE MB FRACTION 2.3 ng/mL (0.5-3.6); LDL CHOLESTEROL 55 mg/dL (5-100); TRIGLYCERIDE 172 mg/dL (0-150); UREA NITROGEN BLOOD 34 mg/dL (9-23)
[2024-01-11 16:48] LABS: ALANINE AMINOTRANSFERASE 16 IU/L (10-49); ASPARTATE AMINOTRANSFERASE 21 IU/L (<34); CHOLESTEROL 110 mg/dL (<200); HDL CHOLESTEROL 27 mg/dL (>65); PHOSPHORUS 6.5 mg/dL (2.5-4.9)
[2024-01-11 16:49] LABS: BILIRUBIN TOTAL 0.5 mg/dL (0.1-1.0); CREATININE 8.5 mg/dL (0.6-1.0); PROTEIN TOTAL 6.6 g/dL (6.0-8.3); TOTAL IRON BINDING CAPACITY 178 ug/dl (250-425)
[2024-01-11 16:52] LABS: THYROID STIMULATING HORMONE 1.14 uIU/mL (0.55-4.78)
[2024-01-11 16:55] LABS: FOLIC ACID (FOLATE) SERUM 19.04 ng/mL (>5.38)
[2024-01-11 16:56] LABS: VITAMIN B12 SERUM 1012 pg/mL (211-911)
[2024-01-11 17:07] LABS: HEPATITIS B SURFACE ANTIGEN NEGATIVE (Negative)
[2024-01-11 17:28] LABS: HEPATITIS A AB IGM NEGATIVE (Negative)
[2024-01-11 17:29] LABS: HEPATITIS B CORE AB IGM NEGATIVE (Negative); HEPATITIS C AB NON REACTIVE (Neg) (Negative)
[2024-01-11 18:20] VITALS: BP 120/65; PULSE 84; RESP 22; TEMP 97.9
[2024-01-11 20:00] VITALS: BP 125/72; PULSE 57; RESP 15; TEMP 98.2
[2024-01-11] MEDS: FAMOTIDINE 20MG TABLET PO SCH (20:38)
[2024-01-11] MEDS: LORAZEPAM 0.5MG TABLET PO PRN (20:49)
[2024-01-12] VITALS (16 sets, daily range): BP systolic 97–135; BP diastolic 51–76; PULSE 52–110; RESP 8–18; TEMP 97–98.4; O2SAT 99
[2024-01-12 00:46] LABS: CREATINE KINASE MB FRACTION 2.5 ng/mL (0.5-3.6)
[2024-01-12 00:47] LABS: TROPONIN I HIGH SENSITIVITY 20 ng/L (3.0-34)
[2024-01-12 09:10] LABS: HEMATOCRIT 38.1 % (36.0-48.0); MEAN CORPUSCULAR HEMOGLOBIN 33.4 pg (28.0-32.0); MEAN CORPUSCULAR HGB CONC 34.2 g/dL (31.0-37.0); MEAN CORPUSCULAR VOLUME 97.6 fL (81.0-99.0); PLATELET 165 x1000/uL (130-400); RED CELL DISTRIBUTION WIDTH 15.2 % (11.6-14.6)
[2024-01-12] MEDS: ACETAMINOPHEN 325MG TABLET PO PRN (09:35)
[2024-01-12] MEDS: AZITHROMYCIN 500 MG TABLET PO SCH (12:14)
[2024-01-12] MEDS: PIPERACILLIN/TAZO 3.375G/50ML 50 ML IV SCH (12:14)
[2024-01-12 12:18] LABS: CHLORIDE 98 mEq/L (98-107); POTASSIUM 3.5 mEq/L (3.5-5.1); SODIUM 135 mEq/L (136-145)
[2024-01-12 12:19] LABS: CALCIUM 9.3 mg/dL (8.7-10.4); CARBON DIOXIDE 28 mEq/L (21-32)
[2024-01-12 12:24] LABS: GLUCOSE 158 mg/dL (70-105); UREA NITROGEN BLOOD 16 mg/dL (9-23)
[2024-01-12 12:26] LABS: CREATINE KINASE 69 IU/L (34-145); CREATININE 6.6 mg/dL (0.6-1.0); PHOSPHORUS 4.6 mg/dL (2.5-4.9)
[2024-01-12] MEDS: IPRATROPIUM/ALBUTEROL 0.5-3(2.5)MG/3ML NEB HHN SCH (14:47)
[2024-01-13] VITALS (9 sets, daily range): BP systolic 110–142; BP diastolic 60–90; PULSE 52–90; RESP 13–23; TEMP 98.3–98.4; O2SAT 96–98
[2024-01-13] MEDS ORDERED: DOCU-138 MT (10:26)
[2024-01-13] MEDS ORDERED: LACT10SO81 MT (10:26)
== END 2024-01-13 14:21 | disposition home or self-care (01) | DRG 871 ==
LOC: ER 20:12 → EDBEDREQ 22:42 → EDBEDREQSVC 01-11 05:19 → 5WST 01-11 09:56 → 3WST 01-11 17:37
PROVIDERS: ADMIT Internal Medicine; ATTEND Internal Medicine
PROC: 5A1D70Z Performance of Urinary Filtration, Intermittent, Less than 6 Hours Per Day (ICD-10-PCS; principal; 2024-01-12)
DX: A41.9 Sepsis, unspecified organism (principal); N18.6 End stage renal disease; E87.1 Hypo-osmolality and hyponatremia; I12.0 Hypertensive chronic kidney disease with stage 5 chronic kidney disease or end stage renal disease; Z20.822 Contact with and (suspected) exposure to COVID-19; E87.6 Hypokalemia; E87.8 Other disorders of electrolyte and fluid balance, not elsewhere classified; K59.00 Constipation, unspecified; G25.81 Restless legs syndrome; J45.909 Unspecified asthma, uncomplicated; I25.10 Atherosclerotic heart disease of native coronary artery without angina pectoris; E78.1 Pure hyperglyceridemia; R94.31 Abnormal electrocardiogram [ECG] [EKG]; J44.9 Chronic obstructive pulmonary disease, unspecified; E66.9 Obesity, unspecified; Z68.30 Body mass index [BMI] 30.0-30.9, adult; Z99.2 Dependence on renal dialysis; I25.2 Old myocardial infarction; Z91.041 Radiographic dye allergy status
CPT/HCPCS: 36415; 71045; 80048; 80053; 80061; 80202; 82550; 82553; 82607; 82746; 83036; 83540; 83550; 83605; 83735; 83880; 84100; 84145; 84443; 84484; 85025; 85027; 85379; 86705; 86709; 87340; 87426; 87804; 90935; 93005; 93306; 93970; 94640; 99291; A6261; C1893; J2543; J3370; J7030

== ENCOUNTER 2024-11-24 15:25 | Emergency (ER) | payer MEDICARE ==
[~2024-11-24] VITALS: Ht 165.1 cm; Wt 104.0 kg
[~2024-11-24 15:25] MED LIST changes: +ASCO500C19 PO; -ASCO500C6 PO; +DOCU-138 MT; +FOLI0.8T53 PO; +LACT10SO81 MT; -NEPVIT PO
[2024-11-24 15:30] VITALS: O2SAT 97
[2024-11-24] MEDS ORDERED: ALBUTEROL (0.083%) 2.5MG/3ML NEB HHN STA (15:49)
[2024-11-24] MEDS ORDERED: IPRATROPIUM BROMIDE (0.02%) 0.5MG/2.5ML NEB HHN STA (15:49)
[2024-11-24] MEDS: METHYLPREDNISOLONE SOD SUCC 125MG/2ML (ACT-O-VIAL) IV STA (16:15)
[2024-11-24 17:04] LABS: CHLORIDE 95 mEq/L (98-107); POTASSIUM 3.4 mEq/L (3.5-5.1); SODIUM 134 mEq/L (136-145)
[2024-11-24 17:05] LABS: CARBON DIOXIDE 28 mEq/L (21-32)
[2024-11-24 17:10] LABS: BASOPHILS % 0.6 % (0.0-2.0); EOSINOPHILS % 3.1 % (0.0-5.0); GLUCOSE 205 mg/dL (70-105); HEMATOCRIT. 45.6 % (36.0-48.0); HEMOGLOBIN. 14.3 g/dL (12.0-16.0); MEAN CORPUSCULAR HEMOGLOBIN 30.9 pg (28.0-32.0); MEAN CORPUSCULAR HGB CONC 31.5 g/dL (31.0-37.0); MEAN CORPUSCULAR VOLUME 98.3 fL (81.0-99.0); MEAN PLATELET VOLUME 9.6 fl (7.4-10.4); MONOCYTES % 6.4 % (2.0-8.0); NEUTROPHILS % 74.9 % (40.0-76.0); PLATELET 159 x1000/uL (130-400); RED BLOOD CELL COUNT 4.64 mill/uL (4.2-5.4); RED CELL DISTRIBUTION WIDTH 16.6 % (11.6-14.6); UREA NITROGEN BLOOD 12 mg/dL (9-23); WHITE BLOOD COUNT 9.4 x1000/uL (4.5-11.0)
[2024-11-24 17:11] LABS: TROPONIN I HIGH SENSITIVITY 4 ng/L (3.0-34)
[2024-11-24 17:16] LABS: CREATININE 4.2 mg/dL (0.6-1.0)
[2024-11-24] MEDS ORDERED: ALBU18HF2 IH (18:36)
[2024-11-24] MEDS ORDERED: P50 MT (18:36)
[2024-11-24 19:22] VITALS: BP 153/68; PULSE 74; RESP 18; TEMP 36.7; O2SAT 98
== END 2024-11-24 19:50 | disposition home or self-care (01) ==
LOC: ER 15:25
DX: J98.01 Acute bronchospasm (principal); I12.0 Hypertensive chronic kidney disease with stage 5 chronic kidney disease or end stage renal disease; N18.6 End stage renal disease; I25.2 Old myocardial infarction; E66.9 Obesity, unspecified; Z99.2 Dependence on renal dialysis; Z68.38 Body mass index [BMI] 38.0-38.9, adult; Z87.891 Personal history of nicotine dependence; Z98.890 Other specified postprocedural states; Z79.3 Long term (current) use of hormonal contraceptives; Z88.8 Allergy status to other drugs, medicaments and biological substances; Z91.041 Radiographic dye allergy status; Z79.899 Other long term (current) drug therapy
CPT/HCPCS: 99285; 96374; 71045; 80048; 83880; 85025; 84484; 36415; 93005; J2919